=== PATIENT | female | born 1965 | race Caucasian/White ===

== ENCOUNTER 2016-06-19 09:46 | Observation (INO) | payer OTHER ==
[2016-06-07 09:45] LABS: HEMATOCRIT 43.5 % (36.0-48.0); HEMOGLOBIN 15.4 g/dL (12.0-16.0)
--- NOTE | ~2016-06-19 | OP ---
Record Of Operation [facility] [address] [place]. 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 POSTOPERATIVE DIAGNOSES: Multinodular goiter with tracheal compression and deviation as well as dysphagia. PROCEDURES: 1. Total thyroidectomy. 2. NIM monitoring of superior and recurrent laryngeal nerve. SURGEON: Luda Bliss M.D. ANESTHESIA: General. COMPLICATIONS: None. COUNTS: All counts correct following the procedure. ESTIMATED BLOOD LOSS: 150 mL. PREOPERATIVE INFORMED CONSENT: We discussed the risk and benefits of surgery including, but not limited to bleeding, infection, possible superior and/or recurrent laryngeal nerve injury resulting in temporary or permanent deficits, possible postoperative hypothyroidism, possible need for reoperation, and possible need for lifelong thyroid replacement therapy. She understands the risks and benefits of surgery and consent is on the chart. PROCEDURE IN DETAIL: The patient was brought to the operative suite and placed on the operating table in the supine position. General endotracheal anesthesia was initiated without incident using a [facility] monitoring endotracheal tube. The [facility] monitor was hooked up and calibrated and noted to be functioning properly. The neck was cleaned, prepped and draped in the usual sterile fashion. Following this, a transverse incision was marked out 2 fingerbreadths above the sternal notch and injected with 1% Lidocaine with 1:100,000 epinephrine for hemostasis. Following this, a #15-blade scalpel was used to make an incision down to the underlying subcutaneous tissues. Electrocautery was used to perform sharp dissection down through the platysma layer. The midline fascia was divided using electrocautery. The strap muscles were retracted laterally. Dissecting along the right capsular plane, the middle thyroid vein was dissected out and divided using the Harmonic scalpel. The inferior pole vessels were dissected out and dissecting in the tracheoesophageal groove, the recurrent laryngeal nerve was identified and confirmed using the NIMH stimulator and preserved as it was followed up superiorly up to its insertion into the cricothyroid notch. The inferior pole vessels were then divided at the level of the capsule of the thyroid using the Harmonic scalpel. The Record Of Operation [facility] [address] [place]. [address] NAME: SULLY FISCHER : 61 STATUS : ADM IN PAT#: [id number] AGE: 50 ADM/REG DATE : 06/19/16 MR#: [id number] REPORT SERV DATE: 06/19/16 DICTATED BY: LUDA BLISS DATE: 06/19/16 REPORT STATUS : Draft TRANSCRIBED BY: MODL DATE: 06/19/16 superior pole vessels were dissected out and the superior laryngeal nerve was identified and confirmed using the NIMH stimulator and preserved. The superior pole vessels were divided using the Harmonic scalpel. The gland was further retracted medially and Panchal's ligament was divided using the Harmonic scalpel, bipolar cautery, and a #15-blade scalpel. The gland was further dissected off the anterior tracheal wall and divided just to the left of midline using the Harmonic scalpel. The specimen was inspected and there was no evidence of any subcapsular parathyroid. The left lobe of the thyroid was then again carefully dissected out just like the right-hand side, dividing the middle thyroid vein using the Harmonic scalpel. The inferior pole vessels were dissected out and the recurrent laryngeal nerve was identified in the tracheoesophageal groove and confirmed using the NIMH stimulator and followed superiorly up to its insertion into the cricothyroid notch and was preserved in its entirety. The inferior and superior parathyroids were identified during the dissection of the recurrent laryngeal nerve. The superior pole vessels were again dissected out. The superior laryngeal nerve was also identified using the NIMH stimulator and preserved. The superior pole vessels were divided using the Harmonic scalpel. The gland was further retracted medially and Panchal's ligament was again released using bipolar cautery, a #15-blade scalpel and the Harmonic scalpel. The gland was dissected off the anterior tracheal wall using electrocautery and removed en bloc. The left lobe of the thyroid was inspected and there was no evidence of any subcapsular parathyroid tissue. The specimen was sent for permanent section. The wound was copiously irrigated with sterile saline. Any bleeding sites were cauterized using bipolar cautery. The NIMH stimulator was used to stimulate the superior and recurrent laryngeal nerves bilaterally at the end of the case and these were noted to be functioning properly. The deep cervical space was filled with platelet rich plasma and the midline fascia was closed using a running 3-0 Vicryl suture followed by closure of the platysmal layer using interrupted 3-0 Vicryl followed by placement of further platelet poor plasma in the subcutaneous and subplatysmal space. The skin was closed using running subcuticular Prolene suture followed by Benzoin, Steri-Strips and Tegaderm Dressing. The patient was then awakened from anesthesia, extubated, and taken to the recovery room in stable condition. JBria/WILIAN Luda Bliss M.D. / [id number] CC: Andreas Hairston
[~2016-06-19 09:46] MED LIST: ADVIL PO; AMB10 PO; BENTYL10 PO; FIBER THERAPY PO; GARLIC PO; GLUCPH PO; HORMONE INJECTION; LIPITOR10 PO; NEUR300 PO; PROBIOTIC; X5 PO
[2016-06-19 14:07] LABS: PTH (INTRAOPERATIVE) 86.4 PG/ML (10.0-65.0); PTH TAT 0 Hrs 22 Mins
[2016-06-19 17:01] LABS: PTH TAT 0 Hrs 21 Mins
[2016-06-20] MEDS ORDERED: DURICEF (08:20)
[2016-06-20] MEDS ORDERED: OS500+D PO (08:21)
[2016-06-20] MEDS ORDERED: NORCO1 TA1 PO (08:23)
[2016-06-20] MEDS ORDERED: ZOFRAN ODT4 MG PO (08:24)
== END 2016-06-20 10:42 | disposition home or self-care (01) ==
LOC: SDC/OF 09:46 → PACU 16:58 → 5SO 19:58
PROVIDERS: Otolaryngology
PROC: 0GTK0ZZ Resection of Thyroid Gland, Open Approach (ICD-10-PCS; principal; 2016-06-19 11:00)
DX: E04.2 Nontoxic multinodular goiter (principal); E11.9 Type 2 diabetes mellitus without complications; E78.5 Hyperlipidemia, unspecified; G47.33 Obstructive sleep apnea (adult) (pediatric); E78.00 Pure hypercholesterolemia, unspecified; E66.01 Morbid (severe) obesity due to excess calories; F41.9 Anxiety disorder, unspecified; Z88.8 Allergy status to other drugs, medicaments and biological substances; Z90.49 Acquired absence of other specified parts of digestive tract
CPT/HCPCS: 82310; 82330; 82962; 83970; 85014; 85018; 88307; 93005; 96374; 96376; A9270-GY; G0378; J2250; J2270; J2370; J2405; J2710; J3010